=== PATIENT | male | born 1960 | race Caucasian/White ===

== ENCOUNTER 2021-03-15 13:51 | Emergency (ER) | payer OTHER, SELFPAY ==
[2021-03-15 15:02] VITALS: BP 126/82; PULSE 98; RESP 19; TEMP 36.7; O2SAT 95; BMI 31.3
[2021-03-15 15:13] LABS: Glucose Point of Care > 600 mg/dL (70-110)
[2021-03-15 19:20] VITALS: BP 136/115; PULSE 108; RESP 16; O2SAT 95
--- NOTE | 2021-03-15 19:31 | ECG_ITS ---
[facility] ED Test Date: 2021-03-15 Pat Name: Darrell Hernandez Department: Room: Gender: Male High Worker: : 1960 Requested By: Jame Roman Order Number: [id number] Maribel MD: Polly Lizama M.D. Measurements Intervals [place] Rate: 92 P: 35 [place]: 168 QRS: 39 QRSD: 82 T: 51 QT: 373 QTc: 463 Interpretive Statements SINUS RHYTHM LOW QRS VOLTAGE IN PRECORDIAL LEADS [QRS DEFLECTION < 1.0 mV IN CHEST LEADS] SEPTAL MYOCARDIAL INFARCTION [40+ ms Q WAVE IN V1/V2], OF INDETERMINATE AGE No previous ECG available for comparison Electronically Signed On 03-17-2021 7:41:20 CDT by Polly Lizama M.D. [id number]
[2021-03-15] MEDS: sodium chloride 0.9% 1,000 ML 999 ML IV ×2 (19:39→20:28)
--- NOTE | 2021-03-15 19:46 | CTR_ITS ---
PROCEDURE INFORMATION: Exam: CT Abdomen And Pelvis With Contrast Exam date and time: 03/15/2021 7:46 PM Age: 61 years old Clinical indication: Other: Weight loss, high blood sugar; Prior surgery; Surgery type: Gb, stents; Additional info: Rule out pancreatic mass, new diabetes, weight loss TECHNIQUE: Imaging protocol: Computed tomography of the abdomen and pelvis with contrast. Radiation optimization: All CT scans at this facility use at least one of these dose optimization techniques: automated exposure control; mA and/or kV adjustment per patient size (includes targeted exams where dose is matched to clinical indication); or iterative reconstruction. Contrast material: OMNI 300; Contrast volume: 95 ml; Contrast route: INTRAVENOUS (IV); COMPARISON: CR Chest 1 [place] [id number] 04/15/2019 1:47 PM RADIATION DOSE METRICS: Total DLP (mGy-cm): 1854.91 FINDINGS: Lungs: There is a noncalcified 10 mm pulmonary nodule in the right lower lobe on axial series 2, image 12. Liver: The liver is normal. Gallbladder and bile ducts: The gallbladder is absent. There is no intrahepatic or extrahepatic bile duct dilation. Pancreas: The pancreas is unremarkable. Spleen: Splenic size is normal. There are scattered calcifications consistent with healed granulomas. Adrenal glands: The adrenal glands are unremarkable. Kidneys and ureters: The kidneys are unremarkable. No hydronephrosis or stones. No ureteral dilation. Stomach and bowel: The stomach is decompressed, preventing meaningful evaluation of wall thickness. The small bowel is nondilated. There is mild descending colonic diverticulosis without evidence of diverticulitis. Appendix: The appendix is normal. Intraperitoneal space: There is no free air or significant intraperitoneal free fluid. Vasculature: There is moderate aortic atherosclerotic disease. The portal, splenic and superior mesenteric veins are patent. Lymph nodes: There is no lymphadenopathy in the retroperitoneum, mesentery, pelvis or inguinal regions. Urinary bladder: The urinary bladder is unremarkable. Reproductive: The prostate and seminal vesicles are unremarkable. Bones/joints: There is moderate degenerative disease in the lumbar spine. The pelvis and proximal femora are intact. Soft tissues: The abdominal wall is intact. CT/CT abdomen pelvis w con* [id number] IMPRESSION: 1. No acute findings. No pancreatic abnormality. 2. Right lower lobe pulmonary nodule. For both low risk and high risk patients, consider CT Chest at 3 months, PET/CT, or biopsy. (Reference: Dwayne) 3. Incidental findings above. REFERENCES: Dwayne Beal, et al. Guidelines for Management of Incidental Pulmonary Nodules Detected on CT Images: From the Fleischner Society 2017. Radiology. 2017;284(1):228-243. Radiation Dose CTDIVOL = (mGy): DLP = 1854.91 (mGy-cm)
--- NOTE | 2021-03-15 19:54 | ED_ITS ---
HPI - General Adult General: Chief complaint: General Medical Stated complaint: High BS Time Seen by Provider: 03/15/21 19:05 History of Present Illness: HPI narrative: [61]yo patient w/ HTN, CAD s/p stent x 1, prior history of diabetes presenting to emergency with complaints of not feeling well x1 to 2 weeks. Yesterday, patient went to see her primary care provider was diagnosed with elevated glucose 900. Patient was told to go to the emergency room for evaluation. On arrival, patient had a glucose of 589. Patient denies any nausea vomiting, fever chills malaise,. Patient tells me that he has had a recent weight loss of 15 to 20 pounds for the last 3 weeks. Onset: 2 weeks ago Duration: 2 weeks Severity:moderate/severe Location: home Review of Systems Narrative: Constitutional: No fever, no chills. +genrealized weakness, fatigue, +15-20 lbs stephanie loss HEENT: No vision changes CV: No chest pain, no palpitations PULM: no cough, no dyspnea. GI: No abdominal pain, no N/V/D. : No dysuria MSKEL: No muscle pain SKIN: No new rashes, no lesions. NEURO: No headache, no focal weakness. HEME: No visible bruises PSYCH: Normal mood PFSH ED PFSH: Medical History (Updated 03/16/21 @ 01:37 by Cheryl Henry MD) CAD (coronary artery disease) COVID-22 dec 2020 HHS (hypothenar hammer syndrome) Hypertension Surgical History (Updated 03/16/21 @ 01:35 by Cheryl Henry MD) H/O heart artery stent Physical Exam Narrative: EXAM NARRATIVE: Head: Atraumatic Eyes: PERRL, conjunctiva without injection ENT: Dry membrane moist NECK: Supple, ROM intact LUNGS: LCTAB, no crackles/rhonchi CV: Sinus tachycardia ABDOMEN: Soft, nontender in all quadrants EXTREMITY: Normal ROM SKIN: No rash or erythema NEURO: Awake and alert, no focal motor deficits PSYCH: Normal mood and affect Course Vital Signs: Vital signs: Vital Signs Temperature 98.0 F 03/15/21 15:02 Pulse Rate 98 03/15/21 23:00 Respiratory Rate 16 03/15/21 23:00 Blood Pressure 120/87 03/15/21 23:00 Pulse Oximetry 96 08/10/21 23:00 MDM - General Adult MDM Narrative: Medical decision making narrative: Patient is a 61-year-old male presented to emergency room with concerns for hyperglycemia. Patient has no prior history of diabetes. On arrival, patient is medically stable noted to mildly tachycardic to low 100s. Otherwise patient appears to be dry on exam. GIVEN new onset of diabetes and weight loss, CT abdomen pelvis was ordered. Glucose of 589 on arrival, improved to 467 on 10 units of subcu insulin. Patient is noted to have an anion gap initially 21 despite subcu insulin and IVF. pH of 7.33. Decision was made to place patient on IV insulin. Case was discussed with hospitalist team who agrees to admit patient for further evaluation. CT abdomen pelvis did not show any signs of new pancreatic mass or lesion. Vitals improving, no signs of breathing or bj DKA currently. Disposition: ICU. Lab Data: Labs: Lab Results 03/15/21 03/15/21 03/15/21 Range/Units 14:59 19:28 19:28 WBC 9.6 (4.0-10.0) 10^3/ uL RBC 5.51 H (4.1-5.3) 10^6/u L Hgb 16.6 (11.7-16.6) g/dL Hct 48.5 (42.0-52.0) % MCV 88.0 (80-94) fL MCH 30.1 (28.0-34.0) pg MCHC 34.2 (30.0-36.0) g/dL RDW 11.9 L (12.1-15.1) % Plt Count 262 (130-400) 10^3/c mm MPV 12.2 H (7.4-10.4) fL Neut % (Auto) 61.0 % Lymph % (Auto) 26.0 % Centre % (Auto) 10.0 % Eos % (Auto) 0.9 % Baso % (Auto) 1.0 % Neut # (Auto) 5.87 (1.8-7.7) 10^3/u L Lymph # (Auto) 2.5 (0.8-4.8) 10^3/u L Centre # (Auto) 1.0 H (0.2-0.9) 10^3/u L Eos # (Auto) 0.1 (0.0-0.8) 10^3/u L Baso # (Auto) 0.1 (0.0-0.1) 10^3/u L Nucleated RBC % (a uto) 0 % Nucleated RBCs # 0.0 /100WBC Specimen Type Sample Site George Test VBG pH (7.32-7.42) VBG pCO2 (41-51) mmHg VBG pO2 (25-40) mmHg VBG HCO3 (24-28) mmol/L VBG Base Excess (-3.0-3.0) mmol/ L VBG Hematocrit (42-52) % O2 Delivery Device Change Management Expert ID Sodium 123 L (136-145) mmol/L Potassium 4.8 (3.5-5.1) mmol/L Chloride 86 L (98-107) mmol/L Carbon Dioxide 21 L (22-29) mmol/L Anion Gap 20.8 H (5-19) BUN 34 H (8-23) mg/dL Creatinine 0.8 (0.7-1.2) mg/dL GFR Calculation 98.0 (90-130) mL/min Glucose 584 H* (65-115) mg/dL POC Glucose > 600 H* (70-110) mg/dL Estimat Average Gl ucose Hemoglobin A1c (4.0-6.0) % Calculated Osmolal ity 291 (285-295) mOsm/k g Calcium 9.1 (8.5-10.5) mg/dL Total Bilirubin 0.5 (0.15-1.2) mg/dL AST 35 (0-40) U/L ALT 42 H (0-41) U/L Alkaline Phosphata se 108 (40-130) IU/L Total Protein 7.8 (6.6-8.7) g/dL Albumin 4.3 (3.5-5.2) g/dL Globulin 3.5 (1.3-4.6) g/dL Triglycerides (0-150) mg/dL Cholesterol (0-200) mg/dL LDL Cholesterol Di rect (0-100) mg/dL LDL Cholesterol, C alc HDL Cholesterol (60-100) mg/dL LDL/HDL Ratio Cholesterol/HDL Ra moni (1.0-5.00) mg/dL Lipase 59 (13-60) U/L TSH (0.27-4.20) uIU/ mL Serum Ketones (Negative) 03/15/21 03/15/21 03/15/21 Range/Units 19:28 19:52 21:00 WBC (4.0-10.0) 10^3/ uL RBC (4.1-5.3) 10^6/u L Hgb (11.7-16.6) g/dL Hct (42.0-52.0) % MCV (80-94) fL MCH (28.0-34.0) pg MCHC (30.0-36.0) g/dL RDW (12.1-15.1) % Plt Count (130-400) 10^3/c mm MPV (7.4-10.4) fL Neut % (Auto) % Lymph % (Auto) % Centre % (Auto) % Eos % (Auto) % Baso % (Auto) % Neut # (Auto) (1.8-7.7) 10^3/u L Lymph # (Auto) (0.8-4.8) 10^3/u L Centre # (Auto) (0.2-0.9) 10^3/u L Eos # (Auto) (0.0-0.8) 10^3/u L Baso # (Auto) (0.0-0.1) 10^3/u L Nucleated RBC % (a uto) % Nucleated RBCs # /100WBC Specimen Type Sample Site George Test VBG pH (7.32-7.42) VBG pCO2 (41-51) mmHg VBG pO2 (25-40) mmHg VBG HCO3 (24-28) mmol/L VBG Base Excess (-3.0-3.0) mmol/ L VBG Hematocrit (42-52) % O2 Delivery Device Change Management Expert ID Sodium (136-145) mmol/L Potassium (3.5-5.1) mmol/L Chloride (98-107) mmol/L Carbon Dioxide (22-29) mmol/L Anion Gap (5-19) BUN (8-23) mg/dL Creatinine (0.7-1.2) mg/dL GFR Calculation (90-130) mL/min Glucose (65-115) mg/dL POC Glucose 599 H* (70-110) mg/dL Estimat Average Gl ucose 312 Hemoglobin A1c 12.5 H (4.0-6.0) % Calculated Osmolal ity (285-295) mOsm/k g Calcium (8.5-10.5) mg/dL Total Bilirubin (0.15-1.2) mg/dL AST (0-40) U/L ALT (0-41) U/L Alkaline Phosphata se (40-130) IU/L Total Protein (6.6-8.7) g/dL Albumin (3.5-5.2) g/dL Globulin (1.3-4.6) g/dL Triglycerides (0-150) mg/dL Cholesterol (0-200) mg/dL LDL Cholesterol Di rect (0-100) mg/dL LDL Cholesterol, C alc HDL Cholesterol (60-100) mg/dL LDL/HDL Ratio Cholesterol/HDL Ra moni (1.0-5.00) mg/dL Lipase (13-60) U/L TSH (0.27-4.20) uIU/ mL Serum Ketones Negative (Negative) 03/15/21 03/15/21 03/15/21 Range/Units 21:00 21:13 22:03 WBC (4.0-10.0) 10^3/ uL RBC (4.1-5.3) 10^6/u L Hgb (11.7-16.6) g/dL Hct (42.0-52.0) % MCV (80-94) fL MCH (28.0-34.0) pg MCHC (30.0-36.0) g/dL RDW (12.1-15.1) % Plt Count (130-400) 10^3/c mm MPV (7.4-10.4) fL Neut % (Auto) % Lymph % (Auto) % Centre % (Auto) % Eos % (Auto) % Baso % (Auto) % Neut # (Auto) (1.8-7.7) 10^3/u L Lymph # (Auto) (0.8-4.8) 10^3/u L Centre # (Auto) (0.2-0.9) 10^3/u L Eos # (Auto) (0.0-0.8) 10^3/u L Baso # (Auto) (0.0-0.1) 10^3/u L Nucleated RBC % (a uto) % Nucleated RBCs # /100WBC Specimen Type Sample Site George Test VBG pH (7.32-7.42) VBG pCO2 (41-51) mmHg VBG pO2 (25-40) mmHg VBG HCO3 (24-28) mmol/L VBG Base Excess (-3.0-3.0) mmol/ L VBG Hematocrit (42-52) % O2 Delivery Device Change Management Expert ID Sodium 128 L 126 L (136-145) mmol/L Potassium 4.8 4.7 (3.5-5.1) mmol/L Chloride 91 L 90 L (98-107) mmol/L Carbon Dioxide 20 L 19 L (22-29) mmol/L Anion Gap 21.8 H 21.7 H (5-19) BUN 27 H 27 H (8-23) mg/dL Creatinine 0.7 0.7 (0.7-1.2) mg/dL GFR Calculation 114.3 114.3 (90-130) mL/min Glucose 425 H 431 H (65-115) mg/dL POC Glucose 467 H (70-110) mg/dL Estimat Average Gl ucose Hemoglobin A1c (4.0-6.0) % Calculated Osmolal ity 289 286 (285-295) mOsm/k g Calcium 8.2 L 8.1 L (8.5-10.5) mg/dL Total Bilirubin 0.5 (0.15-1.2) mg/dL AST > 29 (0-40) U/L ALT 36 (0-41) U/L Alkaline Phosphata se 99 (40-130) IU/L Total Protein 6.7 (6.6-8.7) g/dL Albumin 3.7 (3.5-5.2) g/dL Globulin 3.0 (1.3-4.6) g/dL Triglycerides (0-150) mg/dL Cholesterol (0-200) mg/dL LDL Cholesterol Di rect (0-100) mg/dL LDL Cholesterol, C alc HDL Cholesterol (60-100) mg/dL LDL/HDL Ratio Cholesterol/HDL Ra moni (1.0-5.00) mg/dL Lipase (13-60) U/L TSH 1.11 (0.27-4.20) uIU/ mL Serum Ketones (Negative) 03/15/21 03/16/21 03/16/21 Range/Units 22:13 00:03 00:53 WBC (4.0-10.0) 10^3/ uL RBC (4.1-5.3) 10^6/u L Hgb (11.7-16.6) g/dL Hct (42.0-52.0) % MCV (80-94) fL MCH (28.0-34.0) pg MCHC (30.0-36.0) g/dL RDW (12.1-15.1) % Plt Count (130-400) 10^3/c mm MPV (7.4-10.4) fL Neut % (Auto) % Lymph % (Auto) % Centre % (Auto) % Eos % (Auto) % Baso % (Auto) % Neut # (Auto) (1.8-7.7) 10^3/u L Lymph # (Auto) (0.8-4.8) 10^3/u L Centre # (Auto) (0.2-0.9) 10^3/u L Eos # (Auto) (0.0-0.8) 10^3/u L Baso # (Auto) (0.0-0.1) 10^3/u L Nucleated RBC % (a uto) % Nucleated RBCs # /100WBC Specimen Type Venous Sample Site Not specified George Test N/a VBG pH 7.33 (7.32-7.42) VBG pCO2 42.6 (41-51) mmHg VBG pO2 61.4 H (25-40) mmHg VBG HCO3 22.2 L (24-28) mmol/L VBG Base Excess -3.8 L (-3.0-3.0) mmol/ L VBG Hematocrit 47.8 (42-52) % O2 Delivery Device N/flow machine operator ID Amh Sodium 130 L (136-145) mmol/L Potassium 3.8 (3.5-5.1) mmol/L Chloride 95 L (98-107) mmol/L Carbon Dioxide 22 (22-29) mmol/L Anion Gap 16.8 (5-19) BUN 24 H (8-23) mg/dL Creatinine 0.6 L (0.7-1.2) mg/dL GFR Calculation 136.5 H (90-130) mL/min Glucose 331 H (65-115) mg/dL POC Glucose 389 H (70-110) mg/dL Estimat Average Gl ucose Hemoglobin A1c (4.0-6.0) % Calculated Osmolal ity 287 (285-295) mOsm/k g Calcium 8.3 L (8.5-10.5) mg/dL Total Bilirubin 0.5 (0.15-1.2) mg/dL AST 27 (0-40) U/L ALT 35 (0-41) U/L Alkaline Phosphata se 94 (40-130) IU/L Total Protein 6.5 L (6.6-8.7) g/dL Albumin 3.8 (3.5-5.2) g/dL Globulin 2.7 (1.3-4.6) g/dL Triglycerides (0-150) mg/dL Cholesterol (0-200) mg/dL LDL Cholesterol Di rect (0-100) mg/dL LDL Cholesterol, C alc HDL Cholesterol (60-100) mg/dL LDL/HDL Ratio Cholesterol/HDL Ra moni (1.0-5.00) mg/dL Lipase (13-60) U/L TSH (0.27-4.20) uIU/ mL Serum Ketones (Negative) 03/16/21 03/16/21 03/16/21 Range/Units 00:53 02:09 03:09 WBC (4.0-10.0) 10^3/ uL RBC (4.1-5.3) 10^6/u L Hgb (11.7-16.6) g/dL Hct (42.0-52.0) % MCV (80-94) fL MCH (28.0-34.0) pg MCHC (30.0-36.0) g/dL RDW (12.1-15.1) % Plt Count (130-400) 10^3/c mm MPV (7.4-10.4) fL Neut % (Auto) % Lymph % (Auto) % Centre % (Auto) % Eos % (Auto) % Baso % (Auto) % Neut # (Auto) (1.8-7.7) 10^3/u L Lymph # (Auto) (0.8-4.8) 10^3/u L Centre # (Auto) (0.2-0.9) 10^3/u L Eos # (Auto) (0.0-0.8) 10^3/u L Baso # (Auto) (0.0-0.1) 10^3/u L Nucleated RBC % (a uto) % Nucleated RBCs # /100WBC Specimen Type Sample Site George Test VBG pH (7.32-7.42) VBG pCO2 (41-51) mmHg VBG pO2 (25-40) mmHg VBG HCO3 (24-28) mmol/L VBG Base Excess (-3.0-3.0) mmol/ L VBG Hematocrit (42-52) % O2 Delivery Device Change Management Expert ID Sodium (136-145) mmol/L Potassium (3.5-5.1) mmol/L Chloride (98-107) mmol/L Carbon Dioxide (22-29) mmol/L Anion Gap (5-19) BUN (8-23) mg/dL Creatinine (0.7-1.2) mg/dL GFR Calculation (90-130) mL/min Glucose (65-115) mg/dL POC Glucose 300 H 235 H (70-110) mg/dL Estimat Average Gl ucose Hemoglobin A1c (4.0-6.0) % Calculated Osmolal ity (285-295) mOsm/k g Calcium (8.5-10.5) mg/dL Total Bilirubin (0.15-1.2) mg/dL AST (0-40) U/L ALT (0-41) U/L Alkaline Phosphata se (40-130) IU/L Total Protein (6.6-8.7) g/dL Albumin (3.5-5.2) g/dL Globulin (1.3-4.6) g/dL Triglycerides 431 H (0-150) mg/dL Cholesterol 142 (0-200) mg/dL LDL Cholesterol Di rect 71 (0-100) mg/dL LDL Cholesterol, C alc Not Reportable HDL Cholesterol 20 L (60-100) mg/dL LDL/HDL Ratio Not Reportable Cholesterol/HDL Ra moni 7.10 H (1.0-5.00) mg/dL Lipase (13-60) U/L TSH (0.27-4.20) uIU/ mL Serum Ketones (Negative) Imaging Data^: Other Imaging: Radi[facility]'s impression: [facility] [address] [place], [place] [address]DM Scan ReportSigned Patient: Marcio Hernandez #: [id number]: [id number]#:[id number]/Sex: 61 / MADM Date: 03/15/21Loc: ERRoom/Bed:Attending Dr: Ordering Provider/Ordering MD: Jame Roman MD Date of Service: 03/15/21 Procedure(s): CT abdomen pelvis w con* [id number] Accession Number(s): [id number] Report Number: [id number] PROCEDURE INFORMATION: Exam: CT Abdomen And Pelvis With Contrast Exam date and time: 03/15/2021 7:46 PM Age: 61 years old Clinical indication: Other: Weight loss, high blood sugar; Prior surgery; Surgery type: Gb, stents; Additional info: Rule out pancreatic mass, new diabetes, weight loss TECHNIQUE: Imaging protocol: Computed tomography of the abdomen and pelvis with contrast. Radiation optimization: All CT scans at this facility use at least one of these dose optimization techniques: automated exposure control; mA and/or kV adjustment per patient size (includes targeted exams where dose is matched to clinical indication); or iterative reconstruction. Contrast material: OMNI 300; Contrast volume: 95 ml; Contrast route: INTRAVENOUS (IV); COMPARISON: [place] Chest 1 [place] [id number] 04/15/2019 1:47 PM RADIATION DOSE METRICS: Total DLP (mGy-cm): 1854.91 FINDINGS: Lungs: There is a noncalcified 10 mm pulmonary nodule in the right lower lobe on axial series 2, image 12. Liver: The liver is normal. Gallbladder and bile ducts: The gallbladder is absent. There is no intrahepatic or extrahepatic bile duct dilation. Pancreas: The pancreas is unremarkable. Spleen: Splenic size is normal. There are scattered calcifications consistent with healed granulomas. Adrenal glands: The adrenal glands are unremarkable. Kidneys and ureters: The kidneys are unremarkable. No hydronephrosis or stones. No ureteral dilation. Stomach and bowel: The stomach is decompressed, preventing meaningful evaluation of wall thickness. The small bowel is nondilated. There is mild descending colonic diverticulosis without evidence of diverticulitis. Appendix: The appendix is normal. Intraperitoneal space: There is no free air or significant intraperitoneal free fluid. Vasculature: There is moderate aortic atherosclerotic disease. The portal, splenic and superior mesenteric veins are patent. Lymph nodes: There is no lymphadenopathy in the retroperitoneum, mesentery, pelvis or inguinal regions. Urinary bladder: The urinary bladder is unremarkable. Reproductive: The prostate and seminal vesicles are unremarkable. Bones/joints: There is moderate degenerative disease in the lumbar spine. The pelvis and proximal femora are intact. Soft tissues: The abdominal wall is intact. CT/CT abdomen pelvis w con* [id number] IMPRESSION: 1. No acute findings. No pancreatic abnormality. 2. Right lower lobe pulmonary nodule. For both low risk and high risk patients, consider CT Chest at 3 months, PET/CT, or biopsy. (Reference: Dwayne) 3. Incidental findings above. REFERENCES: Dwayne H, et al. Guidelines for Management of Incidental Pulmonary Nodules Detected on CT Images: From the Fleischner Society 2017. Radiology. 2017;284(1):228-243. Radiation Dose CTDIVOL = (mGy): DLP = 1854.91 (mGy-cm) Dictated By:Edward Donaldson MDSigned By:Edward Donaldsonigned Date/Time:03/15/212109DD/ 08 Discharge Plan Discharge Patient Disposition: Admitted As Inpatient Clinical Impression: Acute hyperglycemia, HHS (hypothenar hammer syndrome), Acute kidney injury, Acute dehydration Condition: Stable Coding Level of Care Code ED Accounting Consultant for Abigail Lynch
[2021-03-15 19:56] LABS: Glucose Point of Care 599 mg/dL (70-110)
[2021-03-15 20:12] LABS: Basophils # 0.1 10^3/uL (0.0-0.1); Eosinophils # 0.1 10^3/uL (0.0-0.8); Eosinophils % 0.9 %; Hematocrit 48.5 % (42.0-52.0); Hemoglobin 16.6 g/dL (11.7-16.6); Lymphocytes # 2.5 10^3/uL (0.8-4.8); Mean Corpuscular HGB Conc 34.2 g/dL (30.0-36.0); Mean Corpuscular Hemoglobin 30.1 pg (28.0-34.0); Mean Platelet Volume 12.2 fL (7.4-10.4); Neutrophils # 5.87 10^3/uL (1.8-7.7); Nucleated Red Blood Cells % 0 %; Platelet Count 262 10^3/cmm (130-400); Red Blood Count 5.51 10^6/uL (4.1-5.3); Red Cell Distribution Width 11.9 % (12.1-15.1); White Blood Count 9.6 10^3/uL (4.0-10.0)
[2021-03-15 20:17] LABS: Alanine Aminotransferase 42 U/L (0-41); Albumin Level 4.3 g/dL (3.5-5.2); Alkaline Phosphatase 108 IU/L (40-130); Anion Gap 20.8 (5-19); Aspartate Amino Transferase 35 U/L (0-40); Blood Urea Nitrogen 34 mg/dL (8-23); Calcium 9.1 mg/dL (8.5-10.5); Carbon Dioxide 21 mmol/L (22-29); Chloride 86 mmol/L (98-107); Creatinine Clr Calc Pharmacy 119.8058; Globulin 3.5 g/dL (1.3-4.6); Lipase 59 U/L (13-60); Osmolality Calculated 291 mOsm/kg (285-295); Potassium 4.8 mmol/L (3.5-5.1); Sodium 123 mmol/L (136-145); Total Bilirubin 0.5 mg/dL (0.15-1.2); Total Protein 7.8 g/dL (6.6-8.7)
[2021-03-15 20:20] LABS: Glucose 584 mg/dL (65-115)
--- NOTE | 2021-03-15 20:20 | PC.NURSE ---
lab called critical gluc 584. Dr Roman notified.
[2021-03-15 20:30] VITALS: BP 142/94; PULSE 95; RESP 16; O2SAT 96
[2021-03-15] MEDS: iohexol 300 mg/mL 100 mL Btl IV (20:46)
--- NOTE | 2021-03-15 21:04 | PC.NURSE ---
called pharmacy to inquire about insulin. states she has it and is going to icu prior to coming to ED and will be bringing it soon.
[2021-03-15 21:18] LABS: Glucose Point of Care 467 mg/dL (70-110)
[2021-03-15] MEDS: insulin nph human 100 units/1 mL 10 UNIT SUBCUT (21:20)
[2021-03-15 21:30] LABS: Ketone (Acetest) Serum Negative (Negative)
[2021-03-15 21:48] VITALS: BP 141/83; PULSE 98; RESP 16; O2SAT 96
[2021-03-15 22:13] LABS: Anion Gap 21.8 (5-19); Blood Urea Nitrogen 27 mg/dL (8-23); Calcium 8.2 mg/dL (8.5-10.5); Carbon Dioxide 20 mmol/L (22-29); Chloride 91 mmol/L (98-107); Glomerular Filtration Rate 114.3 mL/min (90-130); Glucose 425 mg/dL (65-115); Osmolality Calculated 289 mOsm/kg (285-295); Potassium 4.8 mmol/L (3.5-5.1); Sodium 128 mmol/L (136-145)
[2021-03-15 22:32] VITALS: BP 115/88; PULSE 97; RESP 16; O2SAT 95
--- NOTE | 2021-03-15 22:36 | PC.NURSE ---
Dr. Henry wants 5 unit IVP, then insulin drip at 5 unit/hr, want to target reduced glucose 50-60 per hour to normal range, BMP q 2 hour, accucheck hourly
[2021-03-15 22:43] LABS: Blood Gas Operator Identificat AMH; Blood Gas Sample Site Not specified; Blood Gas Sample Type Venous
--- NOTE | 2021-03-15 22:45 | PM.HP ---
Providers/Chief Complaint Admitting Physician: Cheryl Henry MD Chief Complaint: High BS History of Present Illness Darrell Hernandez is a 61 year old male with PMH HTN, CAD s/p stenting 6 years ago, presented to his PCP yesetrday with few months of increasing fatigue, genralized malaise and discomfort. Noted to have blood sugar >700 on routine lab check, instructed to come into ER today. Upon presentation, Blood glucose 599, anion gap of 21, pseudohyponatremia on labs. Serum ketones negative. Hba1c at 12.5. He has been started on an insulin drip. Review of Systems General: Reports: 10 or more systems reviewed and unremarkable except in HPI and below Const: Denies: fever(s), chills or body aches Eyes: Denies: change in vision, blurry vision or photophobia ENMT: Reports: hoarseness; Denies: throat pain, enlarged tonsils, odynophagia or nasal congestion Card: Denies: chest pain, palpitations, irregular heart rhythm, edema, swelling of feet/ankles, lightheadedness, pre-syncope, dyspnea on exertion or orthopnea Resp: Denies: dyspnea, productive cough, non-productive cough, wheezing, stridor, pain on inspiration, change in phlegm color, hemoptysis or chest congestion GI: Denies: abdominal pain, nausea, vomiting, hematemesis, coffee ground emesis, dysphagia, heartburn, diarrhea, constipation, GI cramping, change in stool character, hematochezia or melena : Denies: flank pain, dysuria, urinary frequency, urinary urgency, urinary hesitancy or hematuria Musc: Denies: neck pain, back pain, extremity pain, joint swelling, joint warmth or deformity Neuro: Denies: headache(s), numbness in extremities, weakness in extremities, sensory changes, difficulty walking, frequent falls, dizziness, vertigo, behavioral changes, Slurred speech present or seizure-like activity Psych: Denies: anxiety, depression, suicidal ideation or homicidal ideation Endo: Denies: polyuria, polydipsia, tired all the time, cold intolerance or hot flashes Jf/Lymph: Denies: easy bruising or easy bleeding Medications/Allergies Home Medications Medication Instructions Recorded Confirmed Last Taken Type acetaminophen-codeine See Rx Instructions .ROUTE .COMPLEX 03/15/21 03/15/21 03/15/21 History alprazolam 1 mg PO TID PRN 03/15/21 03/15/21 03/15/21 History amlodipine 10 mg PO DAILY 03/15/21 03/15/21 03/15/21 History aspirin [Aspir-81] 81 mg PO DAILY 03/15/21 03/15/21 03/15/21 History cholecalciferol (vitamin D3) 25 mcg PO DAILY 03/15/21 03/15/21 03/15/21 History [Vitamin D3] cyanocobalamin (vitamin B-12) 100 mcg PO DAILY 03/15/21 03/15/21 03/15/21 History [Vitamin B-12] lisinopril 20 mg PO BID 03/15/21 03/15/21 03/15/21 History yldljixfgmmo-ahlctpyw-purksw 1 tab PO DAILY 03/15/21 03/15/21 03/15/21 History [Multivitamin 50 Plus] sucralfate 1 g PO QID 03/15/21 03/15/21 03/15/21 History temazepam See Rx Instructions .ROUTE .COMPLEX 03/15/21 03/15/21 03/14/21 History Allergies Allergy/AdvReac Type Severity Reaction Status Date / Time Sulfa (Sulfonamide Allergy ALGY-Anaphy Verified 03/15/21 15:02 Antibiotics) laxis PFSH Acute PFSH: Medical History (Updated 03/16/21 @ 01:37 by Cheryl Henry MD) CAD (coronary artery disease) COVID-22 dec 2020 HHS (hypothenar hammer syndrome) Hypertension Surgical History (Updated 03/16/21 @ 01:35 by Cheryl Henry MD) H/O heart artery stent Vitals/I&O/Wt Last Vital Signs Temp 98.0 F 03/15/21 15:02 Pulse 95 03/15/21 20:30 Resp 16 03/15/21 20:30 BP 142/94 03/15/21 20:30 Pulse Ox 96 03/15/21 20:30 03/15/21 03/15/21 03/15/21 06:59 14:59 22:59 Intake Total 1999 Balance 1999 Weight last 48 hrs Weight 104.78 kg Physical Exam Narrative: EXAM NARRATIVE: General: No acute distress, AO x3 HEENT: PERRLA, pupils bilaterally equal and reactive, pallors not present Chest: Normal vesicular breath sounds, no added sounds, equal good air entry bilaterally CVS: S1-S2 regular, no murmurs, no tachycardia, no gallops, no rubs Abdomen: Soft, nontender, no organomegaly, bowel sounds present Neuro: No focal deficits, no facial deformity, AO x3, power 5/5 in all limbs Extremities: obese, no swelling, edema Data : 03/15/21 19:28 03/15/21 22:03 A&P Assessment and plan (1) Hyperosmolar hyperglycemic state (HHS): ICU admission for insulin drip As a result of uncontrolled type 2 DM Hba1c 12, newly diagnosed DM Currently on insulin drip per DKA/HHS protocol , aim to continue until anion gap closes. thereafter transition to s/c insulin NPO until gap closes CMP every 4 hrs Status: Acute Attestations Medical Necessity Statement*: anticipate less than 2 midnight admission for above defined care Critical Care Time: The high probability of a clinically significant, sudden or life threatening deterioration of the patient's [endocrine] system(s) required my full and direct attention, intervention and personal management. The critical care time is as shown. This time is in addition to time spent performing any reported procedures but includes the following: [x] Data and vital sign review and interpretation [x] Patient assessment, examination and intervention [x] Documentation [x] Medication orders and management Critical Care Time (min): 40 Coding Level of Care Code Acute Supervisor Coke Handling for Chg Fwd Diagnoses Hyperosmolar hyperglycemic state (HHS) E11.00; E11.65
[2021-03-15 22:48] LABS: Base Excess VBG -3.8 mmol/L (-3.0-3.0); HCO3 VBG 22.2 mmol/L (24-28); PCO2 VBG 42.6 mmHg (41-51); PO2 VBG 61.4 mmHg (25-40); Venous Blood Gas Hematocrit 47.8 % (42-52); pH VBG 7.33 (7.32-7.42)
[2021-03-15 23:00] VITALS: BP 120/87; PULSE 98; RESP 16; O2SAT 96
[2021-03-15 23:01] LABS: Estmated Average Glucose 312; Hemoglobin A1C 12.5 % (4.0-6.0)
[2021-03-15] MEDS: insulin regular-human 250 UNIT in sodium chloride 0.9% 250 ML 5.05 UNIT IV (23:05)
[2021-03-15] MEDS: insulin regular-human 100 units/1 mL 5 UNIT IVP (23:08)
[2021-03-15] MEDS: sodium chlor 0.9% + KCl 40 mEq 40 MEQ/1,000 ML BAG 30 MEQ IV (23:12)
[2021-03-15] MEDS: sodium chloride 0.9% 1,000 ML 75 ML IV (23:16)
[2021-03-15] MEDS: famotidine 20 mg/2 mL INJ IVP (23:21)
[2021-03-15 23:27] LABS: Alanine Aminotransferase 36 U/L (0-41); Albumin Level 3.7 g/dL (3.5-5.2); Alkaline Phosphatase 99 IU/L (40-130); Blood Urea Nitrogen 27 mg/dL (8-23); Calcium 8.1 mg/dL (8.5-10.5); Carbon Dioxide 19 mmol/L (22-29); Chloride 90 mmol/L (98-107); Glomerular Filtration Rate 114.3 mL/min (90-130); Glucose 431 mg/dL (65-115); Osmolality Calculated 286 mOsm/kg (285-295); Sodium 126 mmol/L (136-145); Thyroid Stimulating Hormone 1.11 uIU/mL (0.27-4.20); Total Bilirubin 0.5 mg/dL (0.15-1.2); Total Protein 6.7 g/dL (6.6-8.7)
[2021-03-15 23:30] LABS: Anion Gap 21.7 (5-19); Potassium 4.7 mmol/L (3.5-5.1)
[2021-03-15 23:31] LABS: Aspartate Amino Transferase > 29 U/L (0-40)
[2021-03-16 00:07] LABS: Glucose Point of Care 389 mg/dL (70-110)
[2021-03-16 01:34] LABS: Alanine Aminotransferase 35 U/L (0-41); Albumin Level 3.8 g/dL (3.5-5.2); Alkaline Phosphatase 94 IU/L (40-130); Anion Gap 16.8 (5-19); Aspartate Amino Transferase 27 U/L (0-40); Blood Urea Nitrogen 24 mg/dL (8-23); Calcium 8.3 mg/dL (8.5-10.5); Carbon Dioxide 22 mmol/L (22-29); Chloride 95 mmol/L (98-107); Globulin 2.7 g/dL (1.3-4.6); Glomerular Filtration Rate 136.5 mL/min (90-130); Glucose 331 mg/dL (65-115); Osmolality Calculated 287 mOsm/kg (285-295); Potassium 3.8 mmol/L (3.5-5.1); Sodium 130 mmol/L (136-145); Total Bilirubin 0.5 mg/dL (0.15-1.2); Total Protein 6.5 g/dL (6.6-8.7)
[2021-03-16 01:54] LABS: Cholesterol 142 mg/dL (0-200); HDL Cholesterol 20 mg/dL (60-100); Triglycerides 431 mg/dL (0-150)
[2021-03-16 02:13] LABS: LDL Cholesterol Direct 71 mg/dL (0-100)
[2021-03-16 02:14] LABS: Glucose Point of Care 300 mg/dL (70-110)
--- NOTE | 2021-03-16 02:41 | PC.NURSE ---
Dr. Henry called and states to turn insulin drip down to 2 units/hour, give first dose of subQ insulin, turn insulin off in 2 hours and allow patient to eat. awaiting orders
[2021-03-16 03:14] LABS: Glucose Point of Care 235 mg/dL (70-110)
[2021-03-16] MEDS: ALPRAZolam 0.5 mg Tablet 1 MG PO (03:17)
--- NOTE | 2021-03-16 04:44 | PC.NURSE ---
pt glucose 219. turning insulin off at this time per Dr. Henry verbal order to d/c insulin drip in two hours.
[2021-03-16 04:46] LABS: Glucose Point of Care 219 mg/dL (70-110)
[2021-03-16 04:48] LABS: Alanine Aminotransferase 34 U/L (0-41); Albumin Level 3.5 g/dL (3.5-5.2); Alkaline Phosphatase 84 IU/L (40-130); Anion Gap 13.6 (5-19); Aspartate Amino Transferase 30 U/L (0-40); Blood Urea Nitrogen 21 mg/dL (8-23); Carbon Dioxide 23 mmol/L (22-29); Chloride 101 mmol/L (98-107); Globulin 2.8 g/dL (1.3-4.6); Glomerular Filtration Rate 168.5 mL/min (90-130); Glucose 234 mg/dL (65-115); Osmolality Calculated 289 mOsm/kg (285-295); Potassium 3.6 mmol/L (3.5-5.1); Sodium 134 mmol/L (136-145); Total Bilirubin 0.4 mg/dL (0.15-1.2); Total Protein 6.3 g/dL (6.6-8.7)
[2021-03-16 06:14] LABS: Glucose Point of Care 189 mg/dL (70-110)
[2021-03-16 07:21] VITALS: BP 135/84; PULSE 84; RESP 12; O2SAT 93
[2021-03-16 07:23] LABS: Glucose Point of Care 205 mg/dL (70-110)
--- NOTE | 2021-03-16 07:31 | PM.DCS ---
Discharge Providers Date of Discharge: March 16, 2021 Diagnoses at Discharge Discharge Diagnosis (1) Hyperosmolar hyperglycemic state (HHS): Status: Acute Reason for Visit Reason for Visit: High BS Hospital Course Hospital Course Patient admitted yesterday to the ER with a few months of generalized malaise and fatigue. Work-up with primary care physician had showed blood sugar in excess of 700 and he was sent to the ER. Upon arrival her blood sugar greater than 600 with hyperosmolar hyperglycemic state anion gap of 21. Patient was treated overnight with insulin drip per [facility] protocol. Anion gap closed by 4 AM this morning. Patient was transitioned to subcutaneous insulin and tolerated this well. Blood sugar at the time of discharge is much improved in the 200 range. Hemoglobin A1c returned at 12, consistent with a diagnosis of diabetes mellitus. Upon discharge he has been started on 15 units of insulin Lantus via pen and also Metformin 500 mg p.o. twice daily. Follow-up with your primary care provider in the next 1 to 3 days. Recommended to check blood sugar before and 2 hours after every meal and bring the log to his primary care provider so that insulin and or other medications may be adjusted accordingly. Declined referral to endocrinology today. Physical Exam Narrative: EXAM NARRATIVE: GEN: Awake, alert and oriented, no acute distress CVS: S1S2 N RS: CTA B/L Abd: Soft, nt/nd , bs+ ECOLOGIST TECHNICIAN: no focal neuro deficits Discharge Data Data Completed and Pending: Completed Studies During Hospitalization Category Date Time Status CT abdomen pelvis w con* [id number] Urge nt Cat Scan 03/15/21 19:46 Completed Labs from last 24 hours 03/16/21 03/16/21 03/16/21 07:18 06:10 04:43 WBC RBC Hgb Hct MCV MCH MCHC RDW Plt Count MPV Neut % (Auto) Lymph % (Auto) Parmer % (Auto) Eos % (Auto) Baso % (Auto) Neut # (Auto) Lymph # (Auto) Parmer # (Auto) Eos # (Auto) Baso # (Auto) Nucleated RBC % (a uto) Nucleated RBCs # Specimen Type Sample Site George Test VBG pH VBG pCO2 VBG pO2 VBG HCO3 VBG Base Excess VBG Hematocrit O2 Delivery Device Fish And Game Warden ID Sodium Potassium Chloride Carbon Dioxide Anion Gap BUN Creatinine GFR Calculation Glucose POC Glucose 205 H 189 H 219 H Estimat Average Gl ucose Hemoglobin A1c Calculated Osmolal ity Calcium Total Bilirubin AST ALT Alkaline Phosphata se Total Protein Albumin Globulin Triglycerides Cholesterol LDL Cholesterol Di rect LDL Cholesterol, C alc HDL Cholesterol LDL/HDL Ratio Cholesterol/HDL Ra moni Lipase TSH Serum Ketones 03/16/21 03/16/21 03/16/21 04:19 03:09 02:09 WBC RBC Hgb Hct MCV MCH MCHC RDW Plt Count MPV Neut % (Auto) Lymph % (Auto) Parmer % (Auto) Eos % (Auto) Baso % (Auto) Neut # (Auto) Lymph # (Auto) Parmer # (Auto) Eos # (Auto) Baso # (Auto) Nucleated RBC % (a uto) Nucleated RBCs # Specimen Type Sample Site George Test VBG pH VBG pCO2 VBG pO2 VBG HCO3 VBG Base Excess VBG Hematocrit O2 Delivery Device Fish And Game Warden ID Sodium 134 L Potassium 3.6 Chloride 101 Carbon Dioxide 23 Anion Gap 13.6 BUN 21 Creatinine 0.5 L GFR Calculation 168.5 H Glucose 234 H POC Glucose 235 H 300 H Estimat Average Gl ucose Hemoglobin A1c Calculated Osmolal ity 289 Calcium 8.0 L Total Bilirubin 0.4 AST 30 ALT 34 Alkaline Phosphata se 84 Total Protein 6.3 L Albumin 3.5 Globulin 2.8 Triglycerides Cholesterol LDL Cholesterol Di rect LDL Cholesterol, C alc HDL Cholesterol LDL/HDL Ratio Cholesterol/HDL Ra moni Lipase TSH Serum Ketones 03/16/21 03/16/21 03/16/21 00:53 00:53 00:03 WBC RBC Hgb Hct MCV MCH MCHC RDW Plt Count MPV Neut % (Auto) Lymph % (Auto) Parmer % (Auto) Eos % (Auto) Baso % (Auto) Neut # (Auto) Lymph # (Auto) Parmer # (Auto) Eos # (Auto) Baso # (Auto) Nucleated RBC % (a uto) Nucleated RBCs # Specimen Type Sample Site George Test VBG pH VBG pCO2 VBG pO2 VBG HCO3 VBG Base Excess VBG Hematocrit O2 Delivery Device Fish And Game Warden ID Sodium 130 L Potassium 3.8 Chloride 95 L Carbon Dioxide 22 Anion Gap 16.8 BUN 24 H Creatinine 0.6 L GFR Calculation 136.5 H Glucose 331 H POC Glucose 389 H Estimat Average Gl ucose Hemoglobin A1c Calculated Osmolal ity 287 Calcium 8.3 L Total Bilirubin 0.5 AST 27 ALT 35 Alkaline Phosphata se 94 Total Protein 6.5 L Albumin 3.8 Globulin 2.7 Triglycerides 431 H Cholesterol 142 LDL Cholesterol Di rect 71 LDL Cholesterol, C alc Not Reportable HDL Cholesterol 20 L LDL/HDL Ratio Not Reportable Cholesterol/HDL Ra moni 7.10 H Lipase TSH Serum Ketones 03/15/21 03/15/21 03/15/21 22:13 22:03 21:13 WBC RBC Hgb Hct MCV MCH MCHC RDW Plt Count MPV Neut % (Auto) Lymph % (Auto) Parmer % (Auto) Eos % (Auto) Baso % (Auto) Neut # (Auto) Lymph # (Auto) Parmer # (Auto) Eos # (Auto) Baso # (Auto) Nucleated RBC % (a uto) Nucleated RBCs # Specimen Type Venous Sample Site Not specified George Test N/a VBG pH 7.33 VBG pCO2 42.6 VBG pO2 61.4 H VBG HCO3 22.2 L VBG Base Excess -3.8 L VBG Hematocrit 47.8 O2 Delivery Device N/theoretical physics teacher ID Amh Sodium 126 L Potassium 4.7 Chloride 90 L Carbon Dioxide 19 L Anion Gap 21.7 H BUN 27 H Creatinine 0.7 GFR Calculation 114.3 Glucose 431 H POC Glucose 467 H Estimat Average Gl ucose Hemoglobin A1c Calculated Osmolal ity 286 Calcium 8.1 L Total Bilirubin 0.5 AST > 29 ALT 36 Alkaline Phosphata se 99 Total Protein 6.7 Albumin 3.7 Globulin 3.0 Triglycerides Cholesterol LDL Cholesterol Di rect LDL Cholesterol, C alc HDL Cholesterol LDL/HDL Ratio Cholesterol/HDL Ra moni Lipase TSH 1.11 Serum Ketones 03/15/21 03/15/21 03/15/21 21:00 21:00 19:52 WBC RBC Hgb Hct MCV MCH MCHC RDW Plt Count MPV Neut % (Auto) Lymph % (Auto) Parmer % (Auto) Eos % (Auto) Baso % (Auto) Neut # (Auto) Lymph # (Auto) Parmer # (Auto) Eos # (Auto) Baso # (Auto) Nucleated RBC % (a uto) Nucleated RBCs # Specimen Type Sample Site George Test VBG pH VBG pCO2 VBG pO2 VBG HCO3 VBG Base Excess VBG Hematocrit O2 Delivery Device Fish And Game Warden ID Sodium 128 L Potassium 4.8 Chloride 91 L Carbon Dioxide 20 L Anion Gap 21.8 H BUN 27 H Creatinine 0.7 GFR Calculation 114.3 Glucose 425 H POC Glucose 599 H* Estimat Average Gl ucose Hemoglobin A1c Calculated Osmolal ity 289 Calcium 8.2 L Total Bilirubin AST ALT Alkaline Phosphata se Total Protein Albumin Globulin Triglycerides Cholesterol LDL Cholesterol Di rect LDL Cholesterol, C alc HDL Cholesterol LDL/HDL Ratio Cholesterol/HDL Ra moni Lipase TSH Serum Ketones Negative 03/15/21 03/15/21 03/15/21 19:28 19:28 19:28 WBC 9.6 RBC 5.51 H Hgb 16.6 Hct 48.5 MCV 88.0 MCH 30.1 MCHC 34.2 RDW 11.9 L Plt Count 262 MPV 12.2 H Neut % (Auto) 61.0 Lymph % (Auto) 26.0 Parmer % (Auto) 10.0 Eos % (Auto) 0.9 Baso % (Auto) 1.0 Neut # (Auto) 5.87 Lymph # (Auto) 2.5 Parmer # (Auto) 1.0 H Eos # (Auto) 0.1 Baso # (Auto) 0.1 Nucleated RBC % (a uto) 0 Nucleated RBCs # 0.0 Specimen Type Sample Site George Test VBG pH VBG pCO2 VBG pO2 VBG HCO3 VBG Base Excess VBG Hematocrit O2 Delivery Device Fish And Game Warden ID Sodium 123 L Potassium 4.8 Chloride 86 L Carbon Dioxide 21 L Anion Gap 20.8 H BUN 34 H Creatinine 0.8 GFR Calculation 98.0 Glucose 584 H* POC Glucose Estimat Average Gl ucose 312 Hemoglobin A1c 12.5 H Calculated Osmolal ity 291 Calcium 9.1 Total Bilirubin 0.5 AST 35 ALT 42 H Alkaline Phosphata se 108 Total Protein 7.8 Albumin 4.3 Globulin 3.5 Triglycerides Cholesterol LDL Cholesterol Di rect LDL Cholesterol, C alc HDL Cholesterol LDL/HDL Ratio Cholesterol/HDL Ra moni Lipase 59 TSH Serum Ketones 03/15/21 14:59 WBC RBC Hgb Hct MCV MCH MCHC RDW Plt Count MPV Neut % (Auto) Lymph % (Auto) Parmer % (Auto) Eos % (Auto) Baso % (Auto) Neut # (Auto) Lymph # (Auto) Parmer # (Auto) Eos # (Auto) Baso # (Auto) Nucleated RBC % (a uto) Nucleated RBCs # Specimen Type Sample Site George Test VBG pH VBG pCO2 VBG pO2 VBG HCO3 VBG Base Excess VBG Hematocrit O2 Delivery Device Fish And Game Warden ID Sodium Potassium Chloride Carbon Dioxide Anion Gap BUN Creatinine GFR Calculation Glucose POC Glucose > 600 H* Estimat Average Gl ucose Hemoglobin A1c Calculated Osmolal ity Calcium Total Bilirubin AST ALT Alkaline Phosphata se Total Protein Albumin Globulin Triglycerides Cholesterol LDL Cholesterol Di rect LDL Cholesterol, C alc HDL Cholesterol LDL/HDL Ratio Cholesterol/HDL Ra moni Lipase TSH Serum Ketones Vitals: Last Vital Signs Temp 98.0 F 03/15/21 15:02 Pulse 84 03/16/21 07:21 Resp 12 03/16/21 07:21 BP 135/84 03/16/21 07:21 Pulse Ox 93 03/16/21 07:21 Discharge Plan Discharge Patient Disposition: Home Clinical Impression: Acute hyperglycemia, Acute dehydration, Hyperosmolar hyperglycemic state (HHS) Condition: Stable Prescriptions: New Lantus Solostar U-100 Insulin 100 unit/mL (3 mL) insulin pen 15 unit SUBCUT DAILY 30 Days Qty: 15 RF: 0 metformin 500 mg tablet 500 mg PO BID 30 Days Qty: 60 RF: 0 Continued Vitamin B-12 100 mcg Tablet 100 mcg PO DAILY RF: 0 alprazolam 1 mg tablet 1 mg PO TID PRN (Reason: Anxiety) RF: 0 sucralfate 1 gram tablet 1 g PO QID RF: 0 lisinopril 20 mg tablet 20 mg PO BID RF: 0 aspirin 81 mg Tablet,Delayed Release (Dr/Ec) 81 mg PO DAILY RF: 0 amlodipine 10 mg tablet 10 mg PO DAILY RF: 0 acetaminophen-codeine 300-60 mg tablet See Rx Instructions .ROUTE .COMPLEX RF: 0 Multivitamin 50 Plus Tablet 1 tab PO DAILY RF: 0 Vitamin D3 25 mcg (1,000 unit) Tablet 25 mcg PO DAILY RF: 0 temazepam See Rx Instructions .ROUTE .COMPLEX RF: 0 Discharge Orders: Discharge ED (Routine); Ordered 03/16/21 Ordered By: Cheryl Henry Referrals: primary care ,provider [Other] - 1-3 days Discharge Diet: Usual diet Discharge Activity: Resume usual activity Patient Instructions: Opioid Safety Activity Restrictions/Additional Instructions: You have been diagnosed with diabetes mellitus. Hemoglobin A1c is at 12. Please check your blood sugar before and 2 hours after every meal for the next week and bring the chart to your primary care provider. Please purchase a glucometer to facilitate above, available [email or web address]. Call primary care provider with any blood sugar numbers greater than 400 or less than 60 In case of late hypoglycemia, immediately drink juice/milk. Recommended to keep glucose tablets on you at all times to be taken urgently in case of hypoglycemia. Follow-up with your primary care provider in the next 1 to 3 days. Discharge Attestations Time Spent in Discharge Care*: greater than 30 min Quality Metrics Clinical Quality Measures During this hospital stay, did patient experience: None Coding Level of Care Code Acute Chg [facility] note Diagnoses Hyperosmolar hyperglycemic state (HHS) E11.00; E11.65
[2021-03-16] MEDS: sucralfate 1 gm Tablet PO (09:36)
[2021-03-16] MEDS: aspirin 81 mg EC Tablet PO (09:36)
[2021-03-16] MEDS: amlodipine 10 mg Tablet PO (09:37)
[2021-03-16] MEDS: lisinopril 10 mg Tablet 20 MG PO (09:38)
[2021-03-16 09:43] VITALS: BP 121/75; PULSE 129; RESP 14; O2SAT 96
== END 2021-03-16 09:43 | disposition home or self-care (01) ==
PROVIDERS: Student in an Organized Health Care Education/Training Program; Emergency Provider Emergency Medicine
DX: E11.00 Type 2 diabetes mellitus with hyperosmolarity without nonketotic hyperglycemic-hyperosmolar coma (NKHHC) (principal); E11.65 Type 2 diabetes mellitus with hyperglycemia; I10 Essential (primary) hypertension; I25.10 Atherosclerotic heart disease of native coronary artery without angina pectoris; N17.9 Acute kidney failure, unspecified; E86.0 Dehydration; J98.19 Other pulmonary collapse; Z79.82 Long term (current) use of aspirin; Z86.16 Personal history of COVID-19; Z88.2 Allergy status to sulfonamides; Z95.5 Presence of coronary angioplasty implant and graft
CPT/HCPCS: 36415; 36416; 74177; 80048; 80053; 80061; 82009; 82803; 82962; 83036; 83690; 83721; 84443; 85025; 93005; 96365; 96367; 96372; 96375; 99285; J1815; J3490; J7030; J7050; Q9967

== ENCOUNTER → 2021-05-19 13:25 | Outpatient (BNVA) | payer OTHER, SELFPAY | PROVIDERS: Referring Provider Nurse Practitioner Family; Visit Provider Internal Medicine | DX: E11.9 Type 2 diabetes mellitus without complications (principal); I25.10 Atherosclerotic heart disease of native coronary artery without angina pectoris; U07.1 COVID-19; Z87.891 Personal history of nicotine dependence; I10 Essential (primary) hypertension | CPT/HCPCS: 99204 ==

== ENCOUNTER 2021-06-02 10:13 | Day surgery (SDC) | payer OTHER, SELFPAY ==
[2021-05-31 14:40] VITALS: BMI 34.5
--- NOTE | 2021-06-02 10:54 | ANES.PREANE2 ---
Pre-Anesthetic Assessment Pre-Anesthetic Assessment: Height/Weight: Height 1.83 m Weight 115.666 kg Preop Diagnosis: panendoscopy Proposed Procedure: Operation Date: 06/02/21 12:00 Proposed Procedures p EGD/colon 47707 [id number] Z86.010 K21.9(Not Applicable) - Sandro Pimentel MD s Colonoscopy(Not Applicable) - Sandro Pimentel MD Was Beta Steffanie taken within 24 hours: N/A Was Clonidine taken within 24 hours: N/A Social: Social History: No tobacco Comment: Quit smoking years ago. Exam: Pre-Anes Outpt Exam: alert, oriented x 3, clear to auscultation bilaterally and regular rate & rhythm Airway: Submandibular: WNL Cervical ROM: WNL MP: 2 Additional comments: No teeth. Dentures @ home. History/ROS: No significant complaints Pulmonary: Pulmonary: COPD CV/HEM: CV/HEM: CAD (Coronary stent ~ 7yrs ago.) GI: GI: PUD Metabolic: Metabolic: DM Anesthetic Plan: ASA status: 3 Anesthesia: Anesthesia Evaluation and MAC Risk of > 500 ml blood loss (7ml/kg in children): No PFSH Anesthesia PFSH: Medical History CAD (coronary artery disease) Colon polyps COVID-22 dec 2020 Diabetes HHS (hypothenar hammer syndrome) Hypertension Knee arthropathy PUD (peptic ulcer disease) Surgical History H/O esophagogastroduodenoscopy H/O heart artery stent History of cholecystectomy lap 2019 History of colonoscopy with polypectomy 2015 Family History Father Arthritis Cardiac angina Mother No problems noted. Social History Smoking and tobacco status: former smoker Quit status (tobacco): has quit using tobacco Second hand smoke exposure: No Smoking risk assessment/counseling performed?: Yes Alcohol intake: former Desire information about alcohol rehabilitation?: No Counseling given: Yes Desire information about substance/drug rehabilitation?: No Counseling given: Yes Adopted: No Caregiver/support person: No Lives independently: Yes Household members: spouse Housing: House Marital status: Number of children: 2 Number of grandchildren: 7 Highest education level completed: High School Graduate service: No Current occupational status: employed History of recent travel: No Data Anesthesia Cardiac Studies: No Data to Display
--- NOTE | 2021-06-02 11:00 | P.HP_ITS ---
Same Day Surgery H&P Indication for Procedure/HPI DATE OF PROCEDURE: June 02, 2021 CHIEF COMPLAINT/INDICATIONFOR SURGICAL PROCEDURE: egd/colon PREOP DIAGNOSIS: panendoscopy PLANNED PROCEDRUE: Operation Date: 06/02/21 12:00 Proposed Procedures p EGD/colon [id number] Z86.010 K21.9(Not Applicable) - Sandro Pimentel MD s Colonoscopy(Not Applicable) - Sandro Pimentel MD Medications/Allergies* Home Medications Medication Instructions Recorded Confirmed Type acetaminophen-codeine See Rx Instructions .ROUTE .COMPLEX 03/15/21 05/31/21 History amlodipine 10 mg PO DAILY 03/15/21 05/31/21 History aspirin 81 mg PO DAILY 03/15/21 05/31/21 History temazepam See Rx Instructions .ROUTE .COMPLEX 03/15/21 05/31/21 History lisinopril 20 mg tablet 20 mg PO DAILY tab 05/19/21 05/31/21 History Allergies/Adverse Reactions Allergy/AdvReac Type Severity Reaction Status Date / Time Sulfa (Sulfonamide Allergy ALGY-Anaphy Verified 05/31/21 14:52 Antibiotics) laxis Pertinent History/Comorbid Conditions* Medical History (Updated 05/21/21 @ 21:42 by Ventura Sargent MD) CAD (coronary artery disease) Colon polyps COVID-22 dec 2020 Diabetes HHS (hypothenar hammer syndrome) Hypertension Knee arthropathy PUD (peptic ulcer disease) Surgical History (Updated 04/05/21 @ 11:52 by Sandro Pimentel MD) H/O esophagogastroduodenoscopy H/O heart artery stent History of cholecystectomy lap 2019 History of colonoscopy with polypectomy 2016 Family History (Updated 05/19/21 @ 13:53 by Joanne Hernandez LPN) Father Arthritis Father Cardiac angina Father Social History Smoking and tobacco status: former smoker Quit status (tobacco): has quit using tobacco Second hand smoke exposure: No Smoking risk assessment/counseling performed?: Yes Alcohol intake: former Desire information about alcohol rehabilitation?: No Counseling given: Yes Desire information about substance/drug rehabilitation?: No Counseling given: Yes Adopted: No Caregiver/support person: No Lives independently: Yes Household members: spouse Housing: House Marital status: Number of children: 2 Number of grandchildren: 7 Highest education level completed: High School Graduate service: No Current occupational status: employed History of recent travel: No Pertinent Exam Findings alert, oriented x 3 and regular rate & rhythm Recommendations Surgery/Procedure today Coding Level of Care Code Acute [employer] Net Developer for Abigail Lynch
[2021-06-02 11:02] VITALS: BP 147/107; PULSE 91; RESP 18; TEMP 36.7; O2SAT 96
[2021-06-02] MEDS: midazolam 1 mg/mL INJ 2 mL 2 MG IVP (11:19)
[2021-06-02] MEDS: sodium chloride 0.9% 1,000 ML 30 ML IV (11:24)
[2021-06-02 12:36] VITALS: BP 103/67; PULSE 79; RESP 18; TEMP 36.2; O2SAT 96
[2021-06-02 12:48] VITALS: BP 141/96; PULSE 86; RESP 18; O2SAT 96
--- NOTE | 2021-06-02 14:03 | ANE.PACU2 ---
Inpatient post-anesthesia follow up: Airway intact: Yes Vital signs: Temperature 97.2 F Pulse Rate 86 Respiratory Rate 18 Blood Pressure 141/96 Pulse Oximetry 96 Oxygen Delivery Me thod Room Air Oxygen Flow Rate Fraction of Inspir ed Oxygen Hydration adequate: Yes Nausea and vomiting: No Pain level: 1 Mental status: Baseline
== END 2021-06-02 13:14 | disposition home or self-care (01) ==
PROVIDERS: PCP Nurse Practitioner Family; Visit Provider Surgery
PROC: 0DJ08ZZ Inspection of Upper Intestinal Tract, Via Natural or Artificial Opening Endoscopic (ICD-10-PCS; CPT 43235; principal; 2021-06-02 12:00)
PROC: 0DJD8ZZ Inspection of Lower Intestinal Tract, Via Natural or Artificial Opening Endoscopic (ICD-10-PCS; CPT 45378; 2021-06-02 12:00)
DX: R10.12 Left upper quadrant pain (principal); K29.60 Other gastritis without bleeding; D12.4 Benign neoplasm of descending colon; K57.30 Diverticulosis of large intestine without perforation or abscess without bleeding; K64.8 Other hemorrhoids; Z86.010 Personal history of colon polyps; Z87.891 Personal history of nicotine dependence; J44.9 Chronic obstructive pulmonary disease, unspecified; I25.10 Atherosclerotic heart disease of native coronary artery without angina pectoris; Z95.5 Presence of coronary angioplasty implant and graft; E11.9 Type 2 diabetes mellitus without complications; Z86.16 Personal history of COVID-19; I10 Essential (primary) hypertension; Z87.11 Personal history of peptic ulcer disease; Z79.82 Long term (current) use of aspirin
CPT/HCPCS: 43235; 45380; 88305; 96360; 96361; 96374; J2250; J2704; J7030